=== PATIENT | female | born 1960 | race African-American/Black ===

== ENCOUNTER 2016-04-13 07:17 | Outpatient (CLI) | payer BC ==
[2016-04-13 07:55] LABS: Alanine Aminotransferase 17 units/L (7-56); Albumin 4.5 g/dL (3.9-5); Albumin/Globulin Ratio 1.7 %; Alkaline Phosphatase 59 units/L (35-129); Anion Gap 19 mmol/L; Bilirubin,Total 0.7 mg/dL (0.1-1.2); Blood Urea Nitrogen 7 mg/dL (7-17); Carbon Dioxide 25 mmol/L (22-30); Chloride 101.2 mmol/L (98-107); Glucose 103 mg/dL (65-100); Potassium 3.9 mmol/L (3.6-5.0); Sodium 141 mmol/L (137-145); Total Protein 7.2 g/dL (6.3-8.2)
[2016-04-13 08:27] LABS: Cholesterol 153 mg/dL (50-199); HDL Cholesterol 63 mg/dL (40-59); LDL Cholesterol,Direct 69 mg/dL (50-130); Triglycerides 106 mg/dL (2-149)
== END 2016-04-13 07:18 | disposition home or self-care (01) ==
LOC: LAB 07:17
PROVIDERS: ATTEND Specialist
DX: E11.9 Type 2 diabetes mellitus without complications (principal); E78.2 Mixed hyperlipidemia
CPT/HCPCS: 36415; 80053; 80061; 83036; 84443